=== PATIENT | female | born 1945 | race Caucasian/White ===

== ENCOUNTER 2017-12-01 08:34 | Outpatient (CLI) | payer MEDICARE | END 2017-12-01 08:35 | disposition short-term general hospital (02) | LOC: EMS 08:34 | PROVIDERS: ATTEND Surgery | DX: R55 Syncope and collapse (principal); R06.02 Shortness of breath | CPT/HCPCS: A0425; A0427; A0888 ==

== ENCOUNTER → 2019-11-08 | Outpatient (CLI) | payer MEDICARE, BC ==
[2019-11-08 18:49] LABS: URIC ACID 8.1 mg/dL (2.6-7.2)
[2019-11-08 18:59] LABS: RHEUMATOID FACTOR NEGATIVE (Negative)
== END ==
LOC: LAB.WCP 08:00
PROVIDERS: ATTEND Internal Medicine Rheumatology
DX: M15.9 Polyosteoarthritis, unspecified (principal)
CPT/HCPCS: 36415; 84550; 85651; 86140; 86200; 86430

== ENCOUNTER 2020-01-26 15:13 | Emergency (ER) | payer MEDICARE, BC ==
--- NOTE | 2020-01-26 15:31 | ED Physician Documentation ---
PD HPI LOWER EXT INJURY - Stated complaint Stated Complaint: LEFT LEG PAIN - Chief complaint Chief Complaint: Ext Problem - History obtained from History obtained from: Patient - History of Present Illness PD HPI LOW EXT INJURY LOCATION: Both, Lower leg, Ankle Type of injury: No: Fall, Twist Where injury occurred: Other (Remote history of PEs years ago and had recently stopped her anticoagulant about a month or 2 ago and developed chest pain with diagnosis of PE 2 weeks ago at [facility]. She was hospitalized 2 days and discharged on DOAC. She had a knee injection a week ago by Ortho, now bruising LE.) Timing - onset: How many weeks ago (Has had some swelling and tenderness in both calves for 2 to 3 weeks. Recent PE diagnosis by CT of the chest without any leg ultrasounds. Has bruising left leg now.) Timing - duration: Weeks Timing - details: Gradual onset, Still present Worsened by: Palpating. No: Moving Associated symptoms: Swelling (left lower leg and ankle.). No: Weakness, Numbness Contributing factors: Anticoagulated, Other (had ortho eval with knee injection a week ago (left knee medially).) Recently seen: Clinic (Ortho a week ago with injection for arthritis, left knee.), Emergency Dept, Admitted (2 weeks ago [facility] for CP/dyspnea and Dx PE.) Review of Systems Constitutional: denies: Fever, Chills Nose: denies: Rhinorrhea / runny nose, Congestion Throat: denies: Sore throat Cardiac: reports: Chest pain / pressure, Pedal edema (left ankle for several days). denies: Palpitations Respiratory: reports: Dyspnea (2 weeks ago, improved). denies: Cough, Wheezing GI: denies: Abdominal Pain, Nausea, Vomiting, Diarrhea, Bloody / black stool Skin: denies: Abrasion (s), Laceration (s) Musculoskeletal: denies: Back pain PD PAST MEDICAL HISTORY - Past Medical History Cardiovascular: Pulmonary embolism Respiratory: None Neuro: None Endocrine/Autoimmune: None Psych: Anxiety - Past Surgical History Past Surgical History: Yes /LINEN ATTENDANT: Hysterectomy HEENT: Cataracts - Present Medications Home Medications: Ambulatory Orders Medication Instructions Recorded Confirmed Levothyroxine Sodium [Synthroid] 50 mcg PO 12/28/12 01/02/13 Sertraline HCl [Zoloft] 25 mg PO 12/28/12 01/02/13 ALPRAZolam [Xanax] 0.25 mg PO ONCE 01/02/13 01/02/13 Metoprolol Succinate [Toprol Xl] 50 mg PO DAILY #15 tab.er.24h 01/02/13 - Allergies Allergies/Adverse Reactions: Allergies Allergy/AdvReac Type Severity Reaction Status Date / Time etodolac [From Lodine] Allergy Intermediate Rash Verified 12/28/12 18:23 morphine Allergy Rash Verified 12/28/12 18:24 Penicillins Allergy Rash Verified 12/28/12 18:22 Sulfa (Sulfonamide Allergy Rash Verified 12/28/12 18:23 Antibiotics) - Social History Does the pt smoke?: No Smoking Status: Never smoker Does the pt drink ETOH?: Yes Does the pt have substance abuse?: No - Immunizations Immunizations are current?: Yes PD ED PE NORMAL - Vitals Vital signs reviewed: Yes - General General: Alert and oriented X 3, No acute distress, Well developed/nourished - Cardiac Cardiac: RRR, No murmur - Respiratory Respiratory: Clear bilaterally - Derm Derm: Normal color, Warm and dry - Extremities Extremities: Other (some mild edema around the left ankle. purple to yellow bruising color around posterior ankle and anterior salazar. Some tenderness anteromedial knee. Mild calf tenderness both calves. ) - Neuro Neuro: Alert and oriented X 3, No motor deficit, No sensory deficit, Normal speech Results - Vitals Vitals: Vital Signs - 24 hr 01/26/20 01/26/20 01/26/20 15:17 15:40 17:37 Temperature 36.7 C 36.3 C L Heart Rate 107 H 110 H 90 Respiratory 18 18 16 Rate Blood Pressure 151/92 H 144/94 H 148/94 H O2 Saturation 98 98 100 Oxygen O2 Source Room air - Rads (name of study) duplex bilateral lower veins Radiology: Prelim report reviewed (from U/S Tech), EMP read contemporaneously (flow in both legs. Hematoma noted left medial knee. ), See rad report PD MEDICAL DECISION MAKING - ED course Complexity details: reviewed results (no noted DVTs. Hematoma noted left medial knee. ), considered differential (left lower leg old bruising; presume hematoma from knee injection a week ago. Has some pain in both calves with recent Dx of PE on CT 2 wks ago. Can assess U/S to see degree of clots. ), d/w patient Departure - Departure Disposition: 01 Home, Self Care Clinical Impression: Hematoma of left knee region Clinical Impression: (Ruled Out): Deep vein thrombosis Condition: Stable Record reviewed to determine appropriate education?: Yes Instructions: ED Hematoma Follow-Up: Noemi West ARNP, FORK REPAIRER-C [Primary Care Provider] - Comments: The preliminary reading on your ultrasound shows good flow in, so no obvious clot burden. One would presume the clot you had is what ended up in your lung and there is not residual found at this time. The ultrasound did show a hematoma around the left knee, presumed result from the injection from the orthopedist inadvertently hitting a small blood vessel. That would account for the bruising around the ankle developing now. Since there is still some hematoma present around the knee, you can use a wrap around the knee to help reduce swelling but expect worsening bruising around the lower leg and ankle as the hematoma gravitates downward. Tylenol if needed for pains. Elevate and rest your leg often. Warm towels around the knee periodically may help facilitate absorption of the hematoma blood a little faster.
[2020-01-26 17:38] VITALS: BP 148/94
--- NOTE | 2020-01-26 18:08 | Ultrasound Report ---
PROCEDURE: Duplex Ext Veins Bilateral INDICATIONS: [place] TECHNIQUE: Real-time imaging, as well as color and pulse Doppler interrogation, were performed of the deep veins of both legs from the inguinal ligament to the popliteal fossa. COMPARISON: None FINDINGS: The bilateral deep veins are normally compressible, and free of intraluminal thrombus. Co nimo and pulse Doppler demonstrate normal phasic intravascular flow. There is normal augmentation res ponse to distal compression maneuver. In the left leg medial to the proximal calf there is a 6.6 x 1 .6 x 5.4 cm heterogenous hypoechoic structure likely a hematoma. IMPRESSION: 1. No DVT. 2. Likely hematoma of the left medial leg. Reviewed by: Winston Camp on 01/26/2020 6:07 PM PST Approved by: Winston [place] on 01/26/2020 6:07 PM [facility] Station ID: [id number]
== END 2020-01-26 18:11 | disposition home or self-care (01) ==
LOC: ED 15:13
DX: S80.02XA Contusion of left knee, initial encounter (principal); X58.XXXA Exposure to other specified factors, initial encounter; Z79.01 Long term (current) use of anticoagulants
CPT/HCPCS: 93970; 99284

== ENCOUNTER 2020-04-10 08:00 | Outpatient (CLI) | payer MEDICARE, BC ==
[2020-04-10 13:14] LABS: BASOPHILS # (AUTO) 0.1 10^3/uL (0.0-0.1); BASOPHILS % (AUTO) 0.8 %; EOSINOPHILS # (AUTO) 0.5 10^3/uL (0.0-0.7); EOSINOPHILS % (AUTO) 5.7 %; HGB - HEMOGLOBIN 13.4 g/dL (12.0-16.0); LYMPHOCYTES # (AUTO) 2.5 10^3/uL (1.5-3.5); LYMPHOCYTES % (AUTO) 27.1 %; MEAN CORPUSCULAR HEMOGLOBIN 31.8 pg (27.0-31.0); MEAN CORPUSCULAR HGB CONC 32.7 g/dL (32.0-36.0); MEAN CORPUSCULAR VOLUME 97.4 fL (81.0-99.0); MEAN PLATELET VOLUME 10.8 fL (7.9-10.8); MONOCYTES # (AUTO) 0.6 10^3/uL (0.0-1.0); MONOCYTES % (AUTO) 6.2 %; NEUTROPHILS # (AUTO) 5.4 10^3/uL (1.5-6.6); NEUTROPHILS % (AUTO) 59.6 %; PLT - PLATELET COUNT 348 10^3/uL (130-450); RED BLOOD COUNT 4.21 10^6/uL (4.20-5.40); RED CELL DISTRIBUTION WIDTH 13.4 % (12.0-15.0); WHITE BLOOD COUNT 9.1 x10^3/uL (4.8-10.8)
[2020-04-10 13:54] LABS: ALBUMIN/GLOBULIN RATIO 1.4 (1.0-2.2); ALKALINE PHOSPHATASE 74 IU/L (42-121); ALT ALANINE AMINOTRANSFERASE 29 IU/L (10-60); AST ASPARTATE AMINOTRANSFERASE 28 IU/L (10-42); BILIRUBIN,TOTAL 0.7 mg/dL (0.2-1.0); BUN - BLOOD UREA NITROGEN 19 mg/dL (6-20); CALCIUM 9.3 mg/dL (8.5-10.3); CARBON DIOXIDE - CO2 21 mmol/L (21-32); CHLORIDE 107 mmol/L (101-111); CHOLESTEROL 198 mg/dL; CREATININE 0.8 mg/dL (0.4-1.0); GLUCOSE 102 mg/dL (70-100); HDL CHOLESTEROL 66 mg/dL; LDL CHOLESTEROL,CALCULATED 112 mg/dL; LDL/HDL RATIO 1.7 (<4.4); TOTAL PROTEIN 6.8 g/dL (6.7-8.2); URIC ACID 7.4 mg/dL (2.6-7.2); VLDL CHOLESTEROL 20 mg/dL
[2020-04-10 13:56] LABS: CRP - C-REACTIVE PROTEIN < 1.0 mg/dL (0-1.0)
== END 2020-04-10 23:59 ==
LOC: LAB.WCP 08:00
PROVIDERS: ATTEND Nurse Practitioner
DX: E03.9 Hypothyroidism, unspecified (principal); M19.90 Unspecified osteoarthritis, unspecified site; M35.3 Polymyalgia rheumatica; Z79.01 Long term (current) use of anticoagulants; I10 Essential (primary) hypertension; E78.5 Hyperlipidemia, unspecified
CPT/HCPCS: 36415; 80053; 80061; 83721; 84443; 84550; 85025; 85651; 86140

== ENCOUNTER 2021-05-21 08:45 | Outpatient (CLI) | payer MEDICARE, BC ==
[2021-05-21 12:38] LABS: BASOPHILS # (AUTO) 0.1 10^3/uL (0.0-0.1); BASOPHILS % (AUTO) 0.8 %; EOSINOPHILS # (AUTO) 0.5 10^3/uL (0.0-0.7); EOSINOPHILS % (AUTO) 6.1 %; HCT - HEMATOCRIT 37.6 % (37.0-47.0); HGB - HEMOGLOBIN 12.6 g/dL (12.0-16.0); LYMPHOCYTES # (AUTO) 2.1 10^3/uL (1.5-3.5); LYMPHOCYTES % (AUTO) 27.2 %; MEAN CORPUSCULAR HEMOGLOBIN 31.6 pg (27.0-31.0); MEAN CORPUSCULAR HGB CONC 33.5 g/dL (32.0-36.0); MEAN CORPUSCULAR VOLUME 94.2 fL (81.0-99.0); MEAN PLATELET VOLUME 10.8 fL (7.9-10.8); MONOCYTES # (AUTO) 0.6 10^3/uL (0.0-1.0); MONOCYTES % (AUTO) 7.3 %; NEUTROPHILS # (AUTO) 4.4 10^3/uL (1.5-6.6); NEUTROPHILS % (AUTO) 58.1 %; PLT - PLATELET COUNT 332 10^3/uL (130-450); RED BLOOD COUNT 3.99 10^6/uL (4.20-5.40); RED CELL DISTRIBUTION WIDTH 13.4 % (12.0-15.0); WHITE BLOOD COUNT 7.5 x10^3/uL (4.8-10.8)
[2021-05-21 13:32] LABS: THYROID STIMULATING HORMONE 3.75 uIU/mL (0.34-5.60)
[2021-05-21 13:39] LABS: ALBUMIN/GLOBULIN RATIO 1.5 (1.0-2.2); ALKALINE PHOSPHATASE 67 IU/L (42-121); ALT ALANINE AMINOTRANSFERASE 22 IU/L (10-60); AST ASPARTATE AMINOTRANSFERASE 22 IU/L (10-42); BILIRUBIN,TOTAL 0.7 mg/dL (0.2-1.0); BUN - BLOOD UREA NITROGEN 17 mg/dL (6-20); CALCIUM 8.8 mg/dL (8.5-10.3); CARBON DIOXIDE - CO2 25 mmol/L (21-32); CHLORIDE 106 mmol/L (101-111); CHOL/HDL RATIO 3.8 (<4.4); CHOLESTEROL 198 mg/dL; CREATININE 0.6 mg/dL (0.4-1.0); GFR - MDRD 98 (>89); GLUCOSE 102 mg/dL (70-100); HDL CHOLESTEROL 52 mg/dL; LDL CHOLESTEROL,CALCULATED 123 mg/dL; LDL/HDL RATIO 2.4 (<4.4); POTASSIUM 3.7 mmol/L (3.5-5.0); SODIUM 140 mmol/L (135-145); TOTAL PROTEIN 6.7 g/dL (6.7-8.2); TRIGLYCERIDES 116 mg/dL; VLDL CHOLESTEROL 23 mg/dL
== END 2021-05-21 08:46 | disposition home or self-care (01) ==
LOC: LAB.N 08:45
PROVIDERS: ATTEND Family Medicine
DX: E78.5 Hyperlipidemia, unspecified (principal); R53.83 Other fatigue; E03.9 Hypothyroidism, unspecified
CPT/HCPCS: 36415; 80053; 80061; 83721; 84443; 85025

== ENCOUNTER 2021-06-05 12:53 | Outpatient (CLI) | payer MEDICARE, BC ==
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
[2021-06-05 13:51] VITALS: BP 134/88
== END 2021-06-05 12:54 | disposition home or self-care (01) ==
LOC: SC 12:53
PROVIDERS: ATTEND Nurse Practitioner Family
DX: G47.10 Hypersomnia, unspecified (principal); R53.83 Other fatigue; R06.83 Snoring; G47.8 Other sleep disorders; F32.A Depression, unspecified; I10 Essential (primary) hypertension; E66.9 Obesity, unspecified; Z68.31 Body mass index [BMI] 31.0-31.9, adult
CPT/HCPCS: 99203; G0463; 99212

== ENCOUNTER 2022-04-10 16:51 | Outpatient (CLI) | payer MEDICARE, BC | END 2022-04-10 23:59 | disposition home or self-care (01) | LOC: LAB.N 16:51 | PROVIDERS: ATTEND Family Medicine | DX: R30.0 Dysuria (principal) | CPT/HCPCS: 87086; 87181 ==

== ENCOUNTER 2022-09-07 14:03 | Outpatient (CLI) | payer MEDICARE, BC ==
[2022-09-07 18:28] LABS: BASOPHILS # (AUTO) 0.1 10^3/uL (0.0-0.1); BASOPHILS % (AUTO) 0.6 %; EOSINOPHILS # (AUTO) 0.4 10^3/uL (0.0-0.7); EOSINOPHILS % (AUTO) 4.7 %; HCT - HEMATOCRIT 38.9 % (37.0-47.0); HGB - HEMOGLOBIN 12.8 g/dL (12.0-16.0); LYMPHOCYTES # (AUTO) 2.3 10^3/uL (1.5-3.5); LYMPHOCYTES % (AUTO) 25.8 %; MEAN CORPUSCULAR HEMOGLOBIN 31.4 pg (27.0-31.0); MEAN CORPUSCULAR HGB CONC 32.9 g/dL (32.0-36.0); MEAN CORPUSCULAR VOLUME 95.3 fL (81.0-99.0); MONOCYTES # (AUTO) 0.6 10^3/uL (0.0-1.0); MONOCYTES % (AUTO) 7.2 %; NEUTROPHILS # (AUTO) 5.4 10^3/uL (1.5-6.6); NEUTROPHILS % (AUTO) 61.1 %; PLT - PLATELET COUNT 295 10^3/uL (130-450); RED BLOOD COUNT 4.08 10^6/uL (4.20-5.40); RED CELL DISTRIBUTION WIDTH 13.5 % (12.0-15.0); WHITE BLOOD COUNT 8.8 x10^3/uL (4.8-10.8)
[2022-09-07 18:48] LABS: ALBUMIN/GLOBULIN RATIO 1.4 (1.0-2.2); ALKALINE PHOSPHATASE 71 IU/L (42-121); ALT ALANINE AMINOTRANSFERASE 22 IU/L (10-60); AST ASPARTATE AMINOTRANSFERASE 23 IU/L (10-42); BILIRUBIN,TOTAL 0.5 mg/dL (0.2-1.0); BUN - BLOOD UREA NITROGEN 21 mg/dL (6-20); CALCIUM 9.1 mg/dL (8.5-10.3); CARBON DIOXIDE - CO2 23 mmol/L (21-32); CHLORIDE 110 mmol/L (101-111); CREATININE 0.6 mg/dL (0.4-1.0); GFR - MDRD 97 (>89); GLUCOSE 104 mg/dL (70-100); POTASSIUM 4.1 mmol/L (3.5-5.0); SODIUM 139 mmol/L (135-145); TOTAL PROTEIN 6.9 g/dL (6.7-8.2); URIC ACID 6.6 mg/dL (2.6-7.2)
[2022-09-07 18:52] LABS: THYROID STIMULATING HORMONE 2.28 uIU/mL (0.34-5.60)
[2022-09-07 19:07] LABS: CRP - C-REACTIVE PROTEIN < 1.0 mg/dL (0-1.0)
[2022-09-07 20:30] LABS: RHEUMATOID FACTOR NEGATIVE (Negative)
== END 2022-09-07 14:04 | disposition home or self-care (01) ==
LOC: LAB.N 14:03
PROVIDERS: ATTEND Internal Medicine Rheumatology
DX: M25.50 Pain in unspecified joint (principal); E03.9 Hypothyroidism, unspecified
CPT/HCPCS: 36415; 80053; 84443; 84550; 85025; 85651; 86038; 86140; 86200; 86430

== ENCOUNTER 2022-09-07 14:07 | Outpatient (CLI) | payer MEDICARE, BC ==
--- NOTE | 2022-09-07 16:39 | XRAY Report ---
PROCEDURE: Shoulder 2 View BILAT INDICATIONS: BILAT SHOULDER PAIN TECHNIQUE: 2 views of each shoulder were acquired. COMPARISON: None. FINDINGS: Bones: No fractures or dislocations. No suspicious bony lesions. Visualized ribs appear intact. Periarticular osteophyte formation at the acromioclavicular and glenohumeral joints. Soft tissues: No suspicious soft tissue calcifications. IMPRESSION: Osteoarthritis. No acute fracture. No osseous lesion. If symptoms and/or clinical suspici on for pathology continue, further assessment with repeat plain films, or advanced imaging (e.g., CT, MRI, or bone scan) is recommended for further assessment. Reviewed by: Richard Marcus MD on 09/07/2022 4:38 PM PDT Approved by: Richard Marcus MD on 09/07/2022 4:38 PM PDT Station ID: [id number]
== END 2022-09-07 14:08 | disposition home or self-care (01) ==
LOC: DI.N 14:07
PROVIDERS: ATTEND Internal Medicine Rheumatology
DX: M19.012 Primary osteoarthritis, left shoulder (principal); M19.011 Primary osteoarthritis, right shoulder; M25.50 Pain in unspecified joint; E03.9 Hypothyroidism, unspecified
CPT/HCPCS: 36415; 80053; 84443; 84550; 85025; 85651; 86038; 86140; 86200; 86430

== ENCOUNTER 2022-10-20 15:27 | Outpatient (CLI) | payer MEDICARE, BC ==
[2022-10-20 17:50] LABS: BASOPHILS # (AUTO) 0.1 10^3/uL (0.0-0.1); BASOPHILS % (AUTO) 0.8 %; EOSINOPHILS # (AUTO) 0.4 10^3/uL (0.0-0.7); EOSINOPHILS % (AUTO) 5.8 %; HCT - HEMATOCRIT 40.5 % (37.0-47.0); HGB - HEMOGLOBIN 13.2 g/dL (12.0-16.0); LYMPHOCYTES # (AUTO) 2.1 10^3/uL (1.5-3.5); LYMPHOCYTES % (AUTO) 28.1 %; MEAN CORPUSCULAR HGB CONC 32.6 g/dL (32.0-36.0); MEAN CORPUSCULAR VOLUME 95.1 fL (81.0-99.0); MONOCYTES # (AUTO) 0.5 10^3/uL (0.0-1.0); MONOCYTES % (AUTO) 6.9 %; NEUTROPHILS # (AUTO) 4.4 10^3/uL (1.5-6.6); PLT - PLATELET COUNT 300 10^3/uL (130-450); RED BLOOD COUNT 4.26 10^6/uL (4.20-5.40); RED CELL DISTRIBUTION WIDTH 13.4 % (12.0-15.0); WHITE BLOOD COUNT 7.6 x10^3/uL (4.8-10.8)
[2022-10-20 18:16] LABS: ALBUMIN 4.4 g/dL (3.2-5.5); ALBUMIN/GLOBULIN RATIO 1.7 (1.0-2.2); ALKALINE PHOSPHATASE 88 IU/L (42-121); ALT ALANINE AMINOTRANSFERASE 17 IU/L (10-60); AST ASPARTATE AMINOTRANSFERASE 18 IU/L (10-42); BILIRUBIN,TOTAL 0.5 mg/dL (0.2-1.0); BUN - BLOOD UREA NITROGEN 15 mg/dL (6-20); CALCIUM 9.5 mg/dL (8.5-10.3); CARBON DIOXIDE - CO2 26 mmol/L (21-32); CHLORIDE 108 mmol/L (101-111); CHOL/HDL RATIO 3.6 (<4.4); CHOLESTEROL 184 mg/dL; CREATININE 0.8 mg/dL (0.6-1.3); GFR - MDRD 70 (>89); GLUCOSE 110 mg/dL (74-104); HDL CHOLESTEROL 51 mg/dL; LDL CHOLESTEROL,CALCULATED 104 mg/dL; POTASSIUM 4.2 mmol/L (3.5-4.5); SODIUM 140 mmol/L (135-145); TRIGLYCERIDES 144 mg/dL (48-352); VLDL CHOLESTEROL 29 mg/dL
[2022-10-20 18:23] LABS: THYROID STIMULATING HORMONE 2.28 uIU/mL (0.34-5.60)
== END 2022-10-20 15:28 | disposition home or self-care (01) ==
LOC: LAB.N 15:27
PROVIDERS: ATTEND Internal Medicine Cardiovascular Disease
DX: I26.99 Other pulmonary embolism without acute cor pulmonale (principal); E03.9 Hypothyroidism, unspecified; Z79.01 Long term (current) use of anticoagulants; I10 Essential (primary) hypertension; E78.5 Hyperlipidemia, unspecified
CPT/HCPCS: 36415; 80053; 80061; 83721; 84439; 84443; 85025

== ENCOUNTER 2023-05-13 08:00 | Outpatient (CLI) | payer MEDICARE, BC | END 2023-05-13 08:01 | disposition home or self-care (01) | LOC: LAB.N 08:00 | PROVIDERS: ATTEND Physician Assistant | DX: J06.9 Acute upper respiratory infection, unspecified (principal) ==

== ENCOUNTER 2023-11-05 14:47 | Outpatient (CLI) | payer MEDICARE, BC ==
[2023-11-05 18:47] LABS: CALCIUM 9.3 mg/dL (8.5-10.3); CREATININE 0.7 mg/dL (0.6-1.3); POTASSIUM 4.1 mmol/L (3.5-4.5)
== END 2023-11-05 14:48 | disposition home or self-care (01) ==
LOC: LAB.N 14:47
PROVIDERS: ATTEND Internal Medicine Cardiovascular Disease
DX: I10 Essential (primary) hypertension (principal)
CPT/HCPCS: 36415; 80048